=== PATIENT | female | born 1975 | race Caucasian/White ===

== ENCOUNTER → 2016-09-24 | Outpatient (CLI) | payer OTHER | END | disposition home or self-care (01) | LOC: CFH 07:05 | PROVIDERS: ATTEND Obstetrics & Gynecology Female Pelvic Medicine and Reconstructive Surgery | DX: R10.2 Pelvic and perineal pain (principal); Z98.890 Other specified postprocedural states | CPT/HCPCS: 76830 ==

== ENCOUNTER → 2016-10-20 | Outpatient (CLI) | payer OTHER | END | disposition home or self-care (01) | LOC: CFH 08:24 | PROVIDERS: ATTEND Registered Nurse | DX: M79.642 Pain in left hand (principal); R22.9 Localized swelling, mass and lump, unspecified ==

== ENCOUNTER → 2016-12-23 | Outpatient (CLI) | payer OTHER ==
[~2016-12-23] MED LIST: ATOR10TA9 PO; ERGO500017 PO; GLIM1TAB2 PO; LEVO137T2 PO; LISI2.5T PO; METF500T4 PO
[2016-12-23 09:46] LABS: BLOOD UREA NITROGEN 10 mg/dL (7-18)
[2016-12-23 09:50] LABS: ASPARTATE AMINO TRANSFERASE 34 U/L (15-37)
== END | disposition home or self-care (01) ==
LOC: STAR 08:21
PROVIDERS: ATTEND Obstetrics & Gynecology Female Pelvic Medicine and Reconstructive Surgery
DX: Z01.818 Encounter for other preprocedural examination (principal); N93.9 Abnormal uterine and vaginal bleeding, unspecified; N85.2 Hypertrophy of uterus
CPT/HCPCS: 36415; 80053; 85025; 93005

== ENCOUNTER 2017-01-10 05:40 | Day surgery (SDC) | payer OTHER ==
[~2017-01-10] VITALS: Ht 162.6 cm; Wt 124.8 kg
[2017-01-10 06:10] VITALS: BP 154/94
[2017-01-10] MEDS ORDERED: EPINEPHRINE 1 MG/ML, 1ML ONE (06:47)
[2017-01-10] MEDS ORDERED: BUPIVACAINE/PF 0.25% ONE (06:47)
[2017-01-10] MEDS ORDERED: FLUORESCEIN SODIUM 500 MG/5 ML ONE (06:47)
[2017-01-10] MEDS ORDERED: MIDAZOLAM 1 MG/ML, 2ML ONE (07:17)
[2017-01-10] MEDS ORDERED: FENTANYL PF 250 MCG/5ML ONE (07:17)
[2017-01-10] MEDS ORDERED: NEOSTIGMINE 1 MG/ML, 10ML ONE (07:26)
[2017-01-10] MEDS ORDERED: GLYCOPYRROLATE 0.2MG/1ML ONE (07:26)
[2017-01-10] MEDS ORDERED: KETOROLAC 30 MG/1 ML ONE (07:26)
[2017-01-10] MEDS ORDERED: ONDANSETRON 2MG/ML, 2ML ONE (07:26)
[2017-01-10] MEDS ORDERED: ROCURONIUM 10 MG/ML ONE ×3 (07:26)
[2017-01-10] MEDS ORDERED: PROPOFOL 10 MG/ML, 20ML ONE (07:26)
[2017-01-10] MEDS ORDERED: DEXAMETHASONE 4 MG/ML, 5ML ONE (07:26)
[2017-01-10] MEDS ORDERED: SUCCINYLCHOLINE 20 MG/ML, 10ML ONE (07:26)
[2017-01-10] MEDS ORDERED: CEFAZOLIN 1,000 MG ONE (07:26)
[2017-01-10 07:42] LABS: HCG UR OBC PASS
[2017-01-10] MEDS ORDERED: SILVER NITRATE STICK TP ONE (09:04)
[2017-01-10] MEDS ORDERED: LACTATED RINGERS 1,000 ML IV SCH (09:24)
[2017-01-10] MEDS ORDERED: ONDANSETRON 2MG/ML, 2ML IVPush PRN ×2 (09:30)
[2017-01-10] MEDS ORDERED: IBUPROFEN 600 MG TABLET PO PRN (09:30)
[2017-01-10] MEDS ORDERED: METOCLOPRAMIDE 5 MG/ML, 2ML IV PRN (09:30)
[2017-01-10] MEDS ORDERED: PROMETHAZINE 25 MG/ML, 1ML IV PRN (09:30)
[2017-01-10] MEDS ORDERED: hydrALAzine 20 MG/ML, 1ML IV PRN (09:30)
[2017-01-10] MEDS ORDERED: LABETALOL 5MG/ML, 20ML IV PRN (09:30)
[2017-01-10] MEDS ORDERED: ACETAMINOPHEN 325 MG TABLET PO PRN (09:30)
[2017-01-10] MEDS ORDERED: FENTANYL PF 100 MCG/2ML IV PRN (09:30)
[2017-01-10] MEDS ORDERED: MIDAZOLAM 1 MG/ML, 2ML IV PRN (09:30)
[2017-01-10] MEDS ORDERED: OXYcodone 5 MG/5 ML ORAL.SOL UDC PO PRN ×2 (09:30)
[2017-01-10] MEDS ORDERED: ALBUTEROL/IPRATROPIUM 2.5MG/0.5MG, 3 ML NPPB PRN (09:30)
[2017-01-10] MEDS ORDERED: MEPERIDINE/PF 25MG/0.5ML IVPush PRN (09:30)
[2017-01-10] MEDS ORDERED: PROMETHAZINE 25 MG SUPP PR ONE (09:30)
[2017-01-10] MEDS ORDERED: HYDROmorphone 1 MG/ML, 1ML IV PRN (09:30)
[2017-01-10] MEDS ORDERED: ACETAMINOPHEN 650 MG/20.3 ML UDC ONE (09:49)
[2017-01-10] MEDS ORDERED: OXYcodone 5 MG/5 ML ORAL.SOL UDC ONE (09:49)
== END 2017-01-10 13:32 | disposition home or self-care (01) ==
LOC: OUT 05:40
PROVIDERS: ATTEND Obstetrics & Gynecology Female Pelvic Medicine and Reconstructive Surgery
DX: N93.9 Abnormal uterine and vaginal bleeding, unspecified (principal); N85.2 Hypertrophy of uterus; D25.9 Leiomyoma of uterus, unspecified; E78.5 Hyperlipidemia, unspecified; I10 Essential (primary) hypertension; E11.9 Type 2 diabetes mellitus without complications; E03.9 Hypothyroidism, unspecified; Z87.39 Personal history of other diseases of the musculoskeletal system and connective tissue
CPT/HCPCS: 52000; 58571; 81025; 88307; J0171; J0330; J0690; J1100; J1885; J2250; J2405; J2704; J2710; J3010; J3490

== ENCOUNTER → 2017-02-01 | Outpatient (CLI) | payer OTHER | END | disposition home or self-care (01) | LOC: CFH 07:24 | PROVIDERS: ATTEND Obstetrics & Gynecology Female Pelvic Medicine and Reconstructive Surgery | DX: Z12.31 Encounter for screening mammogram for malignant neoplasm of breast (principal) | CPT/HCPCS: 77063; G0202 ==

== ENCOUNTER → 2017-09-20 | Outpatient (CLI) | payer OTHER | END | disposition home or self-care (01) | LOC: CFH 14:42 | PROVIDERS: ATTEND Obstetrics & Gynecology Female Pelvic Medicine and Reconstructive Surgery | DX: N64.4 Mastodynia (principal) | CPT/HCPCS: 77065 ==

== ENCOUNTER → 2018-02-02 | Outpatient (CLI) | payer OTHER ==
[~2018-02-02] MED LIST changes: +METF500T17 PO; -METF500T4 PO
== END | disposition home or self-care (01) ==
LOC: CFH 07:22
PROVIDERS: ATTEND Radiology Diagnostic Radiology
DX: Z12.31 Encounter for screening mammogram for malignant neoplasm of breast (principal)
CPT/HCPCS: 77063; 77067